=== PATIENT | male | born 2000 | race Caucasian/White ===

== ENCOUNTER 2022-09-07 02:14 | Emergency (ER) | payer MEDICAID, SELFPAY ==
[2022-09-07 02:23] VITALS: BP 127/70; PULSE 54; RESP 16; TEMP 36.6; O2SAT 100; BMI 24.0
[2022-09-07 04:14] VITALS: BP 112/61; PULSE 55; RESP 16; TEMP 36.6; O2SAT 98
--- NOTE | 2022-09-07 04:14 | MHC.EDTECH ---
Vitals obtained and patient is resting at this time. Call salazar in reach
[2022-09-07 06:09] VITALS: BP 122/65; PULSE 71; RESP 18; TEMP 36.5; O2SAT 99
--- NOTE | 2022-09-07 06:10 | MHC.EDTECH ---
Assisted with a suture set-up.
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
[2022-09-07] MEDS: Amoxicillin/Potassium Clav 875 MG TABLET PO (06:31)
[2022-09-07] MEDS: Diphth,Pertus(ACell),Tet Adult 0.5 ML SYRINGE IM (06:31)
[2022-09-07] MEDS: Lidocaine HCl 1 % 20 ML VIAL SUBCUT (06:32)
== END 2022-09-07 06:37 | disposition home or self-care (01) ==
PROVIDERS: Emergency Provider Emergency Medicine
DX: S00.81XA Abrasion of other part of head, initial encounter (principal); W25.XXXA Contact with sharp glass, initial encounter; Y93.9 Activity, unspecified; Y92.9 Unspecified place or not applicable; Y99.9 Unspecified external cause status; Z23 Encounter for immunization
CPT/HCPCS: 12051; 90471; 90715; 99284